=== PATIENT | male | born 1980 ===

== ENCOUNTER 2021-09-27 10:11 | Emergency (ER) | payer BC ==
[~2021-09-27] VITALS: Ht 170.2 cm; Wt 90.7 kg
[2021-09-27] MEDS ORDERED: ONDANSETRON HCL INJ 2MG/ML 2ML 2 MG/ML VIAL IV STA ×2 (10:44→10:55)
[2021-09-27] MEDS ORDERED: SODIUM CHLORIDE 0.9% 1000ML 1,000 ML IV STA (10:44)
[2021-09-27] MEDS ORDERED: DEXAMETHASONE SOD PHOS 10 MG/1 ML VIAL IV ONE (10:45)
[2021-09-27] MEDS ORDERED: SODIUM CHLORIDE 0.9% 1000ML 1,000 ML IV SCH (11:00)
[2021-09-27] MEDS ORDERED: SODIUM CHLORIDE 0.9% 1000ML 2,000 ML ONE (11:01)
[2021-09-27] MEDS: PREDNISONE 10 MG TAB PO SCH ×2 (11:43→13:14)
[2021-09-27 11:45] LABS: BASOPHILS % 0.4 % (0.0-1.0); HEMATOCRIT 43.1 % (38.2-49.6); HEMOGLOBIN 13.9 g/dL (14.0-18.0); LYMPHOCYTES % 21.5 % (18.0-39.1); MEAN CORPUSCULAR HEMOGLOBIN 28.3 pg (28-32); MEAN CORPUSCULAR HGB CONC 32.3 g/dL (31-35); MEAN CORPUSCULAR VOLUME 87.6 fL (81-99); MONOCYTES # (AUTO) 0.6 (0.2-0.8); MONOCYTES % 12.8 % (4.4-11.3); NEUTROPHILS # (AUTO) 3.1 (2.1-6.9); NEUTROPHILS % 65.1 % (38.7-80.0); PLATELET COUNT 246 x10e3/uL (140-360); RED BLOOD COUNT 4.92 x10e6/uL (4.3-5.7); RED CELL DISTRIBUTION WIDTH 12.9 % (11.7-14.4)
[2021-09-27 11:58] LABS: INR 0.98; PARTIAL THROMBOPLASTIN TIME 28.6 seconds (23.8-35.5); PROTHROMBIN TIME 13.9 seconds (11.9-14.5)
[2021-09-27 12:13] LABS: ALANINE AMINOTRANSFERASE 17 IU/L (0-55); ALBUMIN 3.6 g/dL (3.5-5.0); ALBUMIN/GLOBULIN RATIO 1.1 (0.8-2.0); ALKALINE PHOSPHATASE 98 IU/L (40-150); ANION GAP 13.6 mmol/L (8-16); BLOOD UREA NITROGEN 9 mg/dL (7-26); BUN/CREATININE RATIO 9 (6-25); CALCIUM 8.8 mg/dL (8.4-10.2); CARBON DIOXIDE 27 mmol/L (22-29); CHLORIDE 103 mmol/L (98-107); CREATINE KINASE 66 IU/L (30-200); CREATININE, SERUM 1.01 mg/dL (0.72-1.25); GLUCOSE 100 mg/dL (74-118); MAGNESIUM 1.7 MG/DL (1.3-2.1); POTASSIUM 3.6 mmol/L (3.5-5.1); SODIUM 140 mmol/L (136-145)
[2021-09-27] MEDS ORDERED: IOPAMIDOL 370 MG/ML 100 ML INFUS..BTL INJ ONE (13:08)
[2021-09-27] MEDS ORDERED: BEBTELOVIMAB 175 MG INJ IV ONE (13:15)
[2021-09-27 13:52] VITALS: BP 148/90
[2021-09-27] MEDS ORDERED: DIPHENHYDRAMINE HCL 25 MG CAP PO ONE (23:30)
== END 2021-09-27 13:59 | disposition home or self-care (01) ==
LOC: ER 10:42
DX: U07.1 COVID-19 (principal); R55 Syncope and collapse; R05.9 Cough, unspecified; F41.9 Anxiety disorder, unspecified
CPT/HCPCS: 36415; 71045; 80053; 82550; 82553; 83735; 84484; 85025; 85379; 85610; 85730; 87040; 93005; 99283; J1100; J2405; J7030; J7512; Q9967; U0002